=== PATIENT | female | born 1955 | race Caucasian/White ===

== ENCOUNTER 2017-07-30 05:27 | Day surgery (SDC) | payer OTHER ==
[2017-07-22 15:00] VITALS: BMI 25.4
[2017-07-30] MEDS ORDERED: PROPOFOL 20 ML ONE ×2 (13:41→14:11)
[2017-07-30] MEDS ORDERED: MIDAZOLAM HCL 2 MG/2 ML SINGLE DOSE VIAL ONE (13:42)
[2017-07-30] MEDS ORDERED: ceFAZolin SODIUM 1 GM VIAL IVPB ONE (14:00)
[2017-07-30] MEDS ORDERED: ceFAZolin SODIUM 1 GM VIAL ONE (14:01)
[2017-07-30] MEDS ORDERED: LIDOCAINE HCL 2% (50ML VIAL) INF ONE (14:02)
[2017-07-30] MEDS ORDERED: DEXAMETHASONE SOD PHOSPHATE 4 MG/1 ML VIAL ONE (14:10)
[2017-07-30] MEDS ORDERED: KETOROLAC TROMETHAMINE 30 MG/1 ML VIAL ONE (14:12)
[2017-07-30] MEDS ORDERED: ONDANSETRON 4 MG/2 ML VIAL IVPUSH PRN (14:29)
[2017-07-30] MEDS ORDERED: oxyCODONE HCL 5 MG TABLET PO PRN (14:29)
[2017-07-30] MEDS ORDERED: LACTATED RINGERS SOLUTION 1,000 ML IV SCH (14:30)
[2017-07-30] MEDS ORDERED: ACETAMINOPHEN 325 MG TABLET (FP) PO PRN (14:44)
[2017-07-30] MEDS ORDERED: IBUPROFEN 400 MG TABLET (FP) PO PRN (14:44)
--- NOTE | 2017-07-30 15:37 | OP ---
DATE OF OPERATION: 07/30/2017 PREOPERATIVE DIAGNOSIS: Vulvar tumor. POSTOPERATIVE DIAGNOSIS: Vulvar tumor. SURGEON: Edilberto Duron M.D. ANESTHESIA: Fractional. DESCRIPTION OF PROCEDURE: While patient was prepped and draped under general anesthesia, patient received 1 g Ceftin antibiotics, and at this time incision was done, 2% lidocaine injected around the lesion, around the tumor, and then the entire lesion with some margin of the skin removed. The lesion was about 6 cm, and the lesion and all the deep was removed, and the base of the lesion was cauterized, and incision was closed with 2-0 Vicryl. Estimated blood loss was about maybe 5 mL. Patient tolerated the procedure, was sent to the recovery room in good condition. Raisa DURON M.D. [id number]
[2017-07-30 16:54] VITALS: TEMP 98
[2017-07-30 17:37] VITALS: BP 120/70; PULSE 78
--- NOTE | 2017-08-05 13:49 | PATH ---
Surgical Pathology Report Patient Name: JULISSA CERNA [facility]. Rec. #: [id number] /Age/Gender: 1955 (Age: 62) / F Account: [id number] Location: [facility] Taken: 07/30/2017 Received: 07/31/2017 Reported: 08/05/2017 Physicians: Edilberto Pichardo M.D. Specimen(s) Received VULVAR TUMOR Clinical History Vulvar tumor Final Diagnosis VULVAR TUMOR, EXCISION: INVASIVE SQUAMOUS CELL CARCINOMA, WELL DIFFERENTIATED, KERATINIZING TYPE. SQUAMOUS CELL CARCINOMA IN SITU/HIGH GRADE SQUAMOUS INTRAEPITHELIAL LESION PRESENT. DEPTH OF THE TUMOR INVASION: 9 MM. GREATEST TUMOR DIMENSION: 14 MM. INVASIVE CARCINOMA PRESENT AT THE INKED MARGIN. LYMPHOVASCULAR INVASION IS NOT IDENTIFIED. pTNM STAGE ( AJCC 8TH EDITION): pTX, pT1b.. See comment. Comment: Immunostains performed and interpreted at [employer] [facility], [facility] ([id number]) shows the tumor cells are positive for HPV high risk subtype 16, 18, 31 and 33, while negative for HPV low risk subtype 6/11. P16 (performed at [facility] laboratory ([id number]), interpreted at [facility]) is diffusely positive in the tumor cells. Intradepartmental case reviewed with consensus on diagnosis. This case was discussed with Dr. Pichardo on August 05 2017. Electronically Signed Wang Vaughn M.D. Gross Description Received in formalin labeled "vulvar tumor," is a 1.6 x 0.8 x 0.6 cm noyola-gilman portion of possible skin and soft tissue. The base is inked blue and the specimen is bisected. The specimen is entirely submitted in one cassette. /07/31/2017 saudi07/31/2017
== END 2017-07-30 17:00 | disposition home or self-care (01) ==
LOC: JASU-SURG 05:27
PROVIDERS: ATTEND Obstetrics & Gynecology
PROC: 0UBMXZZ Excision of Vulva, External Approach (ICD-10-PCS; principal; 2017-07-30 13:30)
DX: D39.8 Neoplasm of uncertain behavior of other specified female genital organs (principal)
CPT/HCPCS: 88307-TC; 94760